=== PATIENT | male | born 2000 | race Caucasian/White ===

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

== ENCOUNTER 2019-03-06 06:04 | Day surgery (SDC) | payer BC ==
[~2019-03-06 06:04] MED LIST: Lactated Ringers 1,000 ML IV SCH
[2019-03-06 06:33] VITALS: O2SAT 97
[2019-03-06] MEDS ORDERED: Versed 2 MG/2 ML Injection ONE (07:20)
[2019-03-06] MEDS ORDERED: DIPRIVAN 200 MG/20 ML IV ONE ×2 (07:20→07:49)
[2019-03-06] MEDS ORDERED: Lactated Ringers 1,000 ML IV ONE (07:49)
[2019-03-06] MEDS ORDERED: SUBLIMAZE 100 MCG/2 ML ONE (07:52)
--- NOTE | 2019-03-06 09:03 | OP ---
SURGERY DATE/TIME: 03/06/2019 0733 PREOPERATIVE DIAGNOSES: 1) Abdominal pain. 2) Change in bowel habits. 3) Mother with colon cancer. POSTOPERATIVE DIAGNOSES: 1) Gastritis. 2) Esophageal polyp. 3) Normal colon. PROCEDURES: 1) Esophagogastroduodenoscopy with cold forceps biopsy. 2) Colonoscopy. SURGEON: Dr. Huddleston. ANESTHESIA: Medications were given by the anesthesia department. BRIEF HISTORY: The patient is a 18 year old white male who reports he has been having trouble with abdominal pain for the past two to three years. He had change in his bowel habits. He will have constipation alternating with diarrhea. He reports his mother has stage IV colon cancer that she developed at age 40. The patient was felt the need to have endoscopic evaluation and was appraised of the risks of the procedure including the risk of perforation, phlebitis, untoward reaction to medication, bleeding and missed lesions. The patient verbalized his understanding and desired to have the procedure performed. DESCRIPTION OF PROCEDURE: The patient was given the medications by the anesthesia department. He had continuous pulse oximetry, ECG monitoring, intermittent blood pressure monitoring and tidal CO2 monitoring during the examination. He was placed in the left lateral decubitus position. A bite block was placed and the flexible Olympus gastroscope was used to intubate the oropharynx. A view of the larynx was obtained and was normal. The scope was easily introduced in the esophagus which was normal through the gastroesophageal junction where there appeared to be a small inflammatory polyp. The scope was passed in the stomach. The gastric melgar was suctioned dry and the stomach was re-insufflated. The gastric rugal folds distended nicely with insufflation of air. The scope was passed along the greater curvature of the stomach to the antrum. The pylorus is encountered and intubated. The duodenum inspected and found to be essentially normal. Biopsies were obtained for celiac disease. The scope is then withdrawn towards the stomach. A retroflex view was obtained of the lesser curvature, fundus and cardia regions of the stomach and these appeared to be normal. The scope was then redirected towards the gastric antrum which did have the appearance of some mild erythema but no erosions or ulcerations. Biopsies were obtained to rule out the presence of Helicobacter pylori-type organisms. The scope was then removed from the patient. Next, a digital rectal examination was performed and revealed normal anal sphincter tone and no masses and normal prostate. The flexible Olympus pediatric colonoscope was used to intubate the rectum. A view of the colon was developed sequentially to the cecum including short distance in the terminal ileum. Upon insertion and withdrawal, including a retroflex view in the rectum, no mucosal lesions were encountered. The scope was removed from the patient who tolerated the procedure well and was sent back to OP recovery in good condition. The colon prep was noted to be fair to poor.
[2019-03-06 09:06] VITALS: PULSE 77
[2019-03-06 09:09] VITALS: BP 156/78
== END 2019-03-06 09:03 | disposition home or self-care (01) ==
LOC: SDC 06:04
PROVIDERS: ATTEND Family Medicine
DX: K29.70 Gastritis, unspecified, without bleeding (principal); R19.4 Change in bowel habit; K20.9 Esophagitis, unspecified; K22.8 Other specified diseases of esophagus; R10.9 Unspecified abdominal pain; Z80.0 Family history of malignant neoplasm of digestive organs
CPT/HCPCS: 88305; J2250; J2704; J3010

== ENCOUNTER 2019-08-21 19:23 | Emergency (ER) | payer BC ==
--- NOTE | 2019-08-21 20:51 | ERPHSYRPT ---
- History of Present Illness Source: patient Exam Limitations: no limitations Patient Subjective Stated Complaint: pt sttes while chasing the dog he dove to try to catch it and ran into the doorway with his rt shoulder and arm. c/o pain in the rt arm, elbow, shoulder, and back. states pain in upper ext is worse with movement and back pain is worse with deep breath Triage Nursing Assessment: pt alert and oriented, answers questions approp. pt ambulatory with steady gait noted. respirations nonlabored with lungs cta. red areas noted to rt shoulder, upper arm, and elbow. radial pulse wnl. sensation, movement, and cap refill wnl. Physician History: 17 yo wm w R shoulder/R olecranon pain after running into door jam while chasing dog. Pt also complains of L-spine pain. He denies LOC/GROSSMAN/C, T-spine pain. Occurred: just prior to arrival Method of Injury: direct blow Quality: constant Severity of Pain-Max: moderate Severity of Pain-Current: moderate Extremities Pain Location: shoulder: right, elbow: right Modifying Factors: Improves With: movement Associated Symptoms: back pain Allergies/Adverse Reactions: methylphenidate HCl [From Concerta] Allergy (Intermediate, Verified 08/21/19 19: 42) Home Medications: No Reportable Medications [No Reported Medications] 03/06/19 [History] Hx Tetanus, Diphtheria Vaccination/Date Given: Yes Hx Influenza Vaccination/Date Given: No Hx Pneumococcal Vaccination/Date Given: No Immunizations Up to Date: Yes Travel Risk - International Travel Have you traveled outside of the country in past 3 weeks: No - Coronavirus Screening Close contact with a COVID-19 positive Pt in past 14-21 Days: No - Review of Systems Constitutional: No Symptoms Eyes: No Symptoms Ears, Nose, & Throat: No Symptoms Respiratory: No Symptoms Cardiac: No Symptoms Abdominal/Gastrointestinal: No Symptoms Genitourinary Symptoms: No Symptoms Skin: No Symptoms Neurological: No Symptoms Psychological: No Symptoms Endocrine: No Symptoms Hematologic/Lymphatic: No Symptoms Immunological/Allergic: No Symptoms - Past Medical History Pertinent Past Medical History: Yes Neurological History: No Pertinent History ENT History: No Pertinent History Cardiac History: No Pertinent History Respiratory History: Asthma Endocrine Medical History: No Pertinent History Musculoskeletal History: No Pertinent History GI Medical History: GERD History: No Pertinent History Psycho-Social History: Attention Deficit Disorder Male Reproductive Disorders: No Pertinent History Other Medical History: eczema, adhd - Past Surgical History Past Surgical History: Yes Neuro Surgical History: No Pertinent History Cardiac: No Pertinent History Respiratory: No Pertinent History Gastrointestinal: No Pertinent History Genitourinary: No Pertinent History Musculoskeletal: No Pertinent History Male Surgical History: No Pertinent History Other Surgical History: bilateral ear tubes, EGD, colonoscopy - Social History Smoking Status: Never smoker Exposure to second hand smoke: No Drug Use: none Patient Lives Alone: No - Nursing Vital Signs Nursing Vital Signs: Initial Vital Signs Temperature 98.1 F 08/21/19 19:30 Pulse Rate 74 08/21/19 19:30 Respiratory Rate 18 08/21/19 19:30 Blood Pressure 148/95 08/21/19 19:30 O2 Sat by Pulse Oximetry 97 08/21/19 19:30 Pain Scale Pain Intensity 8 - Physical Exam General Appearance: no apparent distress Eyes, Ears, Nose, Throat Exam: normal ENT inspection, TMs normal, pharynx normal Neck Exam: normal inspection, non-tender Cardiovascular/Respiratory Exam: chest non-tender, normal breath sounds, regular rate/rhythm Abdominal Exam: non-tender, soft Back Exam: other (Mild L-spine ttp) Shoulder Exam: No deformity (R anterior shoulder TTP/Pain w abduction/Good ) Elbow/Forearm Exam: pain (R lateral olecranon mildly ttp wo edema or deformity/ Good radial pulse, distal sensation, and capillary return) Hand Exam: normal inspection Neuro/Tendon Exam: normal sensation, normal motor functions, normal tendon functions, no evidence tendon injury Mental Status Exam: alert, oriented x 3, cooperative Skin Exam: normal color SpO2 Interpretation: normal SpO2: 99 O2 Delivery: Room Air - Radiology Exams Shoulder X-ray Interpretation: Reviewed by me (No fx) Right Elbow X-ray Interpretation: Interpreted by me (No fx) L-Spine X-ray Interpretation: Interpreted by me (No Fx) Ordered Tests: Active Orders 24 hr Category Date Time Status ELBOW (MINIMUM 3 VIEWS) Stat Exams 08/21/19 Ordered LUMBAR LIMITED (2 OR 3 VIEWS) Stat Exams 08/21/19 Ordered SHOULDER Stat Exams 08/21/19 Ordered - Progress Progress: unchanged Progress Note: 08/21/19 21:00 Pt refuses IM/po pain meds. Counseled pt/family regarding: rad results - Departure Departure Disposition: Home Clinical Impression: Shoulder contusion, Elbow contusion, Lumbar strain Condition: Stable Critical Care Time: No Referrals: TRACY NEIL MD [Primary Care Provider] - Instructions: Shoulder Sprain, Elbow Sprain (DC), Back Muscle Strain (DC) Additional Instructions: Ice for 12-24 hours Motrin/tylenol for pain Follow up with your family MD for continued pain
[2019-08-21 21:16] VITALS: BP 138/88; PULSE 69; O2SAT 98
--- NOTE | 2019-08-22 08:38 | XRAY ---
Indication: Pain following blunt trauma. Comparison: None 3 view right shoulder demonstrates normal bones, articulation, and soft tissues.
--- NOTE | 2019-08-22 08:38 | XRAY ---
Indication: Pain following blunt trauma. Comparison: None AP/lateral lumbar spine demonstrates 5 lumbar vertebral segments in normal alignment with minimal T11-L1 anterior wedging probably transitional segments. Tiny superior L2 Schmorl node and minimal L5-S1 disc space narrowing. No acute fracture, subluxation, suspicious bony lesions, or soft tissue abnormalities. Impression: Nonacute lumbar spine with chronic features.
--- NOTE | 2019-08-22 08:40 | XRAY ---
Indication: Pain following blunt trauma. Comparison: None 3 view right elbow demonstrates normal bones, articulation, and soft tissues.
== END 2019-08-21 21:16 | disposition home or self-care (01) ==
LOC: ED 19:23
DX: S50.01XA Contusion of right elbow, initial encounter (principal); W01.198A Fall on same level from slipping, tripping and stumbling with subsequent striking against other object, initial encounter; Y93.02 Activity, running; Y92.009 Unspecified place in unspecified non-institutional (private) residence as the place of occurrence of the external cause; Y99.8 Other external cause status
CPT/HCPCS: 72100; 73030; 73080; 99283

== ENCOUNTER 2019-09-01 21:10 | Emergency (ER) | payer BC ==
[2019-09-01 21:28] VITALS: O2SAT 97
--- NOTE | 2019-09-01 21:31 | ERPHSYRPT ---
- History of Present Illness Time Seen by Provider: 09/01/19 21:11 Source: patient Exam Limitations: no limitations Patient Subjective Stated Complaint: "I have a hole in my tooth and it has been hurting for about a week now." Triage Nursing Assessment: Pt presented alert et oriented x3 answering questions appropriately. Pt ambulated to the room without complications. Pt reported having pain in the upper right mouth. Pt reported the pain radiating to the lower jaw. Denied pain radiation to the face, head, or neck. Pupils 3mm reactive. Neck supple non-tender with no noted lymphadenopathy. Symmetrical chest expansion. Pt denied nausea/vomiting. Noted area of decay in the upper right molar next to a filling. No noted abscess/drainage. Physician History: Location: right upper tooth pain Quality: sharp Radiation: into jaw Severity: moderate Duration: one week Timing: gradual Modifying factors/associated signs and symptoms: home OTC medication Allergies/Adverse Reactions: methylphenidate HCl [From Concerta] Allergy (Intermediate, Verified 09/01/19 21:16) Hx Tetanus, Diphtheria Vaccination/Date Given: Yes Hx Influenza Vaccination/Date Given: No Hx Pneumococcal Vaccination/Date Given: No Travel Risk - International Travel Have you traveled outside of the country in past 3 weeks: No - Coronavirus Screening Are you exhibiting any of the following symptoms?: No Close contact with a COVID-19 positive Pt in past 14-21 Days: No - Review of Systems Constitutional: No Fever, No Chills Eyes: No Symptoms Ears, Nose, & Throat: No Symptoms, Mouth Pain Respiratory: No Cough, No Dyspnea Cardiac: No Chest Pain, No Edema, No Syncope Abdominal/Gastrointestinal: No Abdominal Pain, No Nausea, No Vomiting, No Diarrhea Genitourinary Symptoms: No Dysuria Musculoskeletal: No Back Pain, No Neck Pain Skin: No Rash Neurological: No Dizziness, No Focal Weakness, No Sensory Changes Psychological: No Symptoms Endocrine: No Symptoms All Other Systems: Reviewed and Negative - Past Medical History Pertinent Past Medical History: Yes Neurological History: No Pertinent History ENT History: No Pertinent History Cardiac History: No Pertinent History Respiratory History: Asthma Endocrine Medical History: No Pertinent History Musculoskeletal History: No Pertinent History GI Medical History: GERD History: No Pertinent History Psycho-Social History: Attention Deficit Disorder Male Reproductive Disorders: No Pertinent History Other Medical History: eczema, adhd - Past Surgical History Past Surgical History: Yes Neuro Surgical History: No Pertinent History Cardiac: No Pertinent History Respiratory: No Pertinent History Gastrointestinal: No Pertinent History Genitourinary: No Pertinent History Musculoskeletal: No Pertinent History Male Surgical History: No Pertinent History Other Surgical History: bilateral ear tubes, EGD, colonoscopy - Social History Smoking Status: Never smoker Exposure to second hand smoke: No Drug Use: none Patient Lives Alone: No - Nursing Vital Signs Nursing Vital Signs: Initial Vital Signs Temperature 97.9 F 09/01/19 21:10 Pulse Rate 66 09/01/19 21:10 Respiratory Rate 18 09/01/19 21:10 Blood Pressure 137/77 09/01/19 21:10 O2 Sat by Pulse Oximetry 97 09/01/19 21:10 Pain Scale Pain Intensity 3 - Physical Exam General Appearance: no apparent distress, alert Eye Exam: PERRL/EOMI, eyes nml inspection Ears, Nose, Throat Exam: normal ENT inspection, TMs normal, pharynx normal, moist mucous membranes, other Neck Exam: normal inspection, non-tender, supple, full range of motion Respiratory Exam: normal breath sounds, lungs clear, No respiratory distress Cardiovascular Exam: regular rate/rhythm, normal heart sounds, normal peripheral pulses Gastrointestinal/Abdomen Exam: soft, normal bowel sounds, No tenderness, No mass Back Exam: normal inspection, normal range of motion, No CVA tenderness, No vertebral tenderness Extremity Exam: normal inspection, normal range of motion, pelvis stable Neurologic Exam: alert, oriented x 3, cooperative, normal mood/affect, nml cerebellar function, nml station & gait, sensation nml, No motor deficits Skin Exam: normal color, warm, dry, No rash Lymphatic Exam: No adenopathy SpO2 Interpretation: normal SpO2: 97 Comments: 09/01/19 21:33 No trismus, able to fully extend neck, normal range of motion of neck without pain. Uvula is midline, no swelling of the mouth, noraml oropharynx. No exudate, no signs of meningitis, no floor of mouth swelling, no hot potato voice on exam. No buccal swelling, no gum bleeding, upper tooth pain without obvious abscess. - Course Nursing assessment & vital signs reviewed: Yes - Progress Progress: improved Progress Note: 09/01/19 21:33 We will treat as possible dental infection. Although, no obvious abscess was visualized. Will treat with penicillin. Patient will need close follow-up with PCP. Return here for any new or changing symptoms. Counseled pt/family regarding: diagnosis, need for follow-up - Departure Departure Disposition: Home Clinical Impression: Tooth pain Condition: Stable Critical Care Time: No Referrals: TRACY NEIL MD [Primary Care Provider] - Prescriptions: Penicillin V Potassium 500 mg PO QID #28 tablet
[2019-09-01 21:39] VITALS: BP 129/76; PULSE 69
== END 2019-09-01 21:39 | disposition home or self-care (01) ==
LOC: ED 21:10
DX: K08.89 Other specified disorders of teeth and supporting structures (principal)
CPT/HCPCS: 99283